=== PATIENT | male | born 1955 | race Caucasian/White ===

== ENCOUNTER 2016-08-25 00:31 | Emergency (ER) | payer OTHER ==
[~2016-08-25] VITALS: Ht 170.2 cm; Wt 95.0 kg
[2016-08-25 00:36] VITALS: Ht 170.2 cm; Wt 95.0 kg
[2016-08-25] MEDS ORDERED: KETOROLAC 30 MG INJ IM STA (02:14)
--- NOTE | 2016-08-25 02:55 | ERD ---
ER Documentation Chief Complaint Date/Time DATE: 08/25/16 TIME: 02:55 Chief Complaint HIGH BLOOD PRESSURE WITH HEADACHE HPI This is a 61-year-old male comes in with complaints of left upper molar pain for the past 2-3 days. He was known to have elevated blood pressure in triage secondary to the pain. Denies any fevers or chills. Seeing his dentist tomorrow. No trauma. No other current complaints. ROS All systems reviewed and are negative except as per history of present illness. Allergies Allergies: Coded Allergies: No Known Allergy (Unverified , 10/08/13) PMhx/Soc Medical and Surgical Hx: pt denies Medical Hx, pt denies Surgical Hx History of Surgery: No Anesthesia Reaction: No Hx Neurological Disorder: No Hx Respiratory Disorders: No Hx Cardiac Disorders: No Hx Psychiatric Problems: No Hx Miscellaneous Medical Probl: No Hx Alcohol Use: Yes (occasionally) Hx Substance Use: No Hx Tobacco Use: Yes (ex-smoker) Smoking Status: Former smoker Physical Exam Vitals Vital Signs Date Time Temp Pulse Resp B/P Pulse Ox O2 Delivery O2 Flow Rate FiO2 08/25/16 02:18 70 153/88 08/25/16 00:36 97.4 79 18 172/101 97 Physical Exam Const: [] Head: Atraumatic Eyes: Normal Conjunctiva ENT: Normal External Ears, Nose and Mouth. Neck: Full range of motion..~ No meningismus. Resp: Clear to auscultation bilaterally Cardio: Regular rate and rhythm, no murmurs Abd: Soft, non tender, non distended. Normal bowel sounds Skin: No petechiae or rashes Back: No midline or flank tenderness Ext: No cyanosis, or edema Neur: Awake and alert Psych: Normal Mood and Affect Results 24 hrs Current Medications Medications (Trade) Dose Ordered Sig/Dion Route PRN Reason Start Time Stop Time Status Last Admin Dose Admin Ketorolac Tromethamine (Toradol) 30 mg ONCE STAT IM 08/25/16 02:14 08/25/16 02:15 DC 08/25/16 02:30 Procedures/MDM Medical decision m[age]-year-old male here with elevated blood pressure secondary to dental pain. Given Toradol and blood pressures normalized since. Patient feeling much better. Will be discharged home with clindamycin and tramadol. Departure Diagnosis: Primary Impression: Toothache Condition: Stable KATY MATHUR Aug 25, 2016 02:55
[2016-08-25] MEDS ORDERED: TRAM50TA2 PO (02:58)
[2016-08-25] MEDS ORDERED: CLIN-73 PO (02:58)
[2016-08-25] MEDS ORDERED: CLINDAMYCIN 300 MG INJ IM ONE (03:00)
[2016-08-25 03:27] VITALS: BP 134/84; PULSE 84; RESP 16; TEMP 97.5
== END 2016-08-25 03:29 | disposition home or self-care (01) ==
LOC: E/R 00:31
DX: K08.89 Other specified disorders of teeth and supporting structures (principal); R40.2142 Coma scale, eyes open, spontaneous, at arrival to emergency department; R40.2252 Coma scale, best verbal response, oriented, at arrival to emergency department; R40.2362 Coma scale, best motor response, obeys commands, at arrival to emergency department; Z87.891 Personal history of nicotine dependence
CPT/HCPCS: 96372; J1885; Z7502; Z7610

== ENCOUNTER 2018-04-16 17:25 | Emergency (ER) | END 2018-04-16 18:48 | disposition home or self-care (01) ==